=== PATIENT | female | born 1985 | race Caucasian/White ===

== ENCOUNTER 2019-03-08 06:02 | Day surgery (SDC) | payer OTHER, BC ==
[~2019-03-08] VITALS: Ht 154.9 cm; Wt 65.8 kg
[~2019-03-08 06:02] MED LIST: CELE1CAP9 PO; EPIN0.3I11; HYDR-3363 PO; NUVAMIS2; OMEP20CA3 PO; PROAAER10 INH; PROP10TA56 PO; PROP60CA; SING10TA32 PO; TOPA50TA8 PO; TROK1CAP7; TYLE650T35 PO; VENTAER INH; [UNRECOGNIZED DRUG - OTHER] NARES
[2019-03-08] MEDS ORDERED: EPINEPHrine INJ 1 MG/ML 1ML AMP ONE (06:03)
[2019-03-08] MEDS ORDERED: dexameTHASONE 10 MG/1 ML VIAL PRES.FREE (J1100) ONE (06:03)
[2019-03-08] MEDS ORDERED: ROPIvacaine 0.5% 30 ML INJECTION (J2795 PER 1MG) ONE (06:03)
[2019-03-08] MEDS ORDERED: MIDAZOLAM INJ 2 MG/2 ML VIAL (J2250) As Ordered ONE (06:34)
[2019-03-08] MEDS ORDERED: fentaNYL 100 MCG/2 ML INJECTION (J3010) As Ordered ONE ×2 (06:34→07:14)
[2019-03-08 06:35] LABS: URINE PREG TEST NEGATIVE (NEGATIVE)
[2019-03-08] MEDS ORDERED: EPINEPHrine INJ 1 MG/ML 1ML AMP As Ordered ONE (06:44)
[2019-03-08] MEDS ORDERED: LIDOCAINE 1% MDV 20ML VIAL As Ordered ONE (06:46)
[2019-03-08] MEDS ORDERED: ceFAZolin 2 GM/D5W 50 ML IV BAG (J0690 PER 500MG) As Ordered ONE (06:46)
[2019-03-08] MEDS ORDERED: LR 1,000 ML IV ONE (07:00)
[2019-03-08] MEDS ORDERED: PROPOFOL 200 MG/20 ML VIAL As Ordered ONE (07:10)
[2019-03-08] MEDS ORDERED: LIDOCAINE 2% INJ 100 MG/5 ML SDV (FOR ANES.) As Ordered ONE (07:10)
[2019-03-08] MEDS ORDERED: ONDANSETRON 4MG/2ML VIAL (J2405) As Ordered ONE (07:10)
[2019-03-08] MEDS ORDERED: dexameTHASONE 4 MG/ML 1ML VIAL (J1100) As Ordered ONE (07:10)
[2019-03-08] MEDS ORDERED: ROCURONIUM BROMIDE 50 MG/5 ML VIAL As Ordered ONE (07:10)
[2019-03-08] MEDS ORDERED: MIDAZOLAM INJ 2 MG/2 ML VIAL (J2250) IV ONE (07:45)
[2019-03-08] MEDS ORDERED: fentaNYL 100 MCG/2 ML INJECTION (J3010) IV ONE (07:45)
[2019-03-08] MEDS ORDERED: GLYCOPYRROLATE INJ 0.2 MG/ML 2 ML VIAL As Ordered ONE (08:14)
[2019-03-08] MEDS ORDERED: NEOSTIGMINE 10 MG/10 ML VIAL (J2710) As Ordered ONE (08:14)
[2019-03-08] MEDS ORDERED: ONDANSETRON 4MG/2ML VIAL (J2405) IV PRN (10:15)
[2019-03-08] MEDS ORDERED: LR 1,000 ML IV SCH (10:15)
[2019-03-08] MEDS ORDERED: oxyCODONE 5MG TAB PO PRN (10:15)
[2019-03-08] MEDS ORDERED: fentaNYL 100 MCG/2 ML INJECTION (J3010) IV PRN (10:15)
--- NOTE | 2019-03-08 10:31 | RO ---
DATE OF SURGERY: 03/08/2019 PREOPERATIVE DIAGNOSES: 1. Right shoulder posterior instability. 2. Right shoulder partial thickness rotator cuff tear. 3. Right shoulder impingement. POSTOPERATIVE DIAGNOSES: 1. Right shoulder posterior instability. 2. Right shoulder partial thickness rotator cuff tear. 3. Right shoulder impingement. PROCEDURES: 1. Right shoulder arthroscopic posterior labral repair. 2. Right shoulder arthroscopic rotator cuff debridement. 3. Right shoulder arthroscopic subacromial decompression. SURGEON: Enrrique Helm MD PIE TOPPER: Amberly Ordaz PA-C ANESTHESIA: General with preoperative nerve block. INTRAVENOUS (IV) FLUIDS: Lactated Ringer. ESTIMATED BLOOD LOSS: Less than 5 mL. IMPLANTS: Arthrex BioComposite 2.9 mm PushLock anchor times two with labral tape. CLOSURE: Nylon. DESCRIPTION OF PROCEDURE: The patient was identified in the preoperative holding area. The right shoulder marked by me. She had an interscalene nerve block by anesthesia. She is brought to the operating room, placed supine on a well-padded OR table with a beanbag. She received appropriate intravenous (IV) antibiotics within 1 hour of incision. After induction of general anesthesia, an examination under anesthesia was performed of the right shoulder. This revealed 170 degrees of forward flexion, 90 of external rotation with arm at her side, and grade 2+ posterior load and shift, grade 1 anterior load and shift. Left shoulder had a grade 1+ anterior and posterior load and shift. The patient was then placed into the left side down lateral decubitus position with an axillary roll and all bony prominences well padded. She had bilateral Venodyne boots for deep venous thrombosis (DVT) prophylaxis. The right arm was placed into the Arthrex STaR (Shoulder Traction and Rotation) Sleeve lateral decubitus traction powell with 10 pounds of traction. The right shoulder was then prepped and draped in normal sterile fashion with ChloraPrep. Prior to incision, time-out was performed per hospital protocol. Brayan Ordaz was present for the entire procedure and participated in all essential portions of the procedure. This included patient positioning and draping, holding the arthroscope, using the suture grasper to retrieve sutures arthroscopically, loading sutures through the suture lasso and anchor, and wound closure. A time-out performed per hospital protocol. The right shoulder was insufflated with lactated Ringer. A standard posterior viewing portal was made with an 11 blade. 30-degree arthroscope introduced into the joint atraumatically. Diagnostic arthroscopy carried out, revealing a small to moderate partial articular tear of the supraspinatus. The infraspinatus and teres minor were pristine. The subscapularis was intact, however, it had an interesting split morphology with upper and lower leaflets. This was an anatomical variant. It did not appear to be a traumatic tear. The long head of the biceps was unremarkable. The anterior and superior labrum were intact. The inferior labrum around the 6 o'clock position was intact. There was a fissure at the chondral labral junction of the posterior labrum from the 7:30 to 09:30 position. There was grade 1 chondromalacia in the glenoid. An anterior working portal was established through the rotator interval just above the subscapularis. A purple Arthrex cannula was placed. A second cannula was placed high in the rotator interval just anterior to the supraspinatus. The arthroscope was then placed in the superolateral portal, and the labrum was inspected from a different view. The switching stick was used through the initial posterior portal to palpate the posterior labrum, and I was able to displace the posterior labrum medially, making this consistent with a Melissa lesion. Given the patient's preoperative symptoms of posterior instability and intraoperative findings, this was indicated for a posterior labral repair. There was no sign of the inferior or anterior labral tearing or instability. An accessory posterolateral portal was made using the Arthrex percutaneous labral repair kit. Hooked cautery was then used to develop the plane between articular cartilage and labrum posteriorly. Labral elevators were then used to further dissect in a subperiosteal fashion to elevate posterior labrum. A suture lasso was then used to shuttle nitinol wire through the posterior labrum close to the 7:30 position. Labral tape was shuttled. The appropriate drill for a 2.9 mm PushLock was then used to create a socket around the 7:30 position, and the sutures were tensioned. [place] was inserted by hand and then malleted per routine. This nicely advanced the posterior labrum to the glenoid, restoring a bumper. Sutures were cut with the labral videotape sales representative. Next, those steps were repeated around the 8:30 to 9 o'clock position and another labral tape shuttled through capsule and labrum. These were again loaded through a 2.9 mm PushLock anchor. Socket was drilled. [place] was inserted with great fixation. Again, nicely restoring the posterior bumper. Sutures were cut. I felt that a third anchor was unnecessary in this case. I should have mentioned that prior to the posterior labral repair, I actually performed a rotator cuff debridement. The shaver was used to remove frayed articular-sided supraspinatus tissue. I would estimate this at a 25% to 33% partial tear. Using the probe and a switching stick to palpate the area of the tear after the debridement, there were no areas of high-grade tearing. The arthroscope was then placed into the subacromial space where there was extensive bursitis. A lateral working portal was established and an extensive bursectomy performed with the shaver and cautery. There was minimal bursal-sided fraying of the supraspinatus. The shoulder was very gently internally and externally rotated, and there was no liftoff or buckling. A switching stick was used to palpate the entire bursal-sided rotator cuff. No high-grade tears appreciated. No indication for rotator cuff repair. Bursal tissue was cleared off the undersurface the acromion. The CA ligament did not appear thickened, and there was no significant subacromial spur so no acromioplasty indicated. The shoulder was irrigated and drained. Portals closed with nylon suture. She was carefully positioned into her R-2 sling in the gunslinger position. After placed into the sling, she was extubated, transferred to the postanesthesia care unit (PACU) in stable condition.
[2019-03-08 11:15] VITALS: BP 115/60
== END 2019-03-08 11:21 | disposition home or self-care (01) ==
LOC: M SDC 06:02
PROVIDERS: ATTEND Orthopaedic Surgery
DX: M25.311 Other instability, right shoulder (principal); M75.111 Incomplete rotator cuff tear or rupture of right shoulder, not specified as traumatic; M75.41 Impingement syndrome of right shoulder; K21.9 Gastro-esophageal reflux disease without esophagitis; J45.909 Unspecified asthma, uncomplicated; Z79.899 Other long term (current) drug therapy; Z79.51 Long term (current) use of inhaled steroids; Z91.040 Latex allergy status; Z88.2 Allergy status to sulfonamides; Z88.0 Allergy status to penicillin
CPT/HCPCS: 29807; 29826; 29827; 64415; 84703; C1713; J0690; J1100; J2250; J2405; J2710; J2795; J3010

== ENCOUNTER → 2021-07-11 | Outpatient (CLI) | payer OTHER ==
[~2021-07-11] MED LIST changes: +ACET650T61 PO; +OMEP1CAP73 PO; -OMEP20CA3 PO; -TYLE650T35 PO
--- NOTE | 2021-07-12 12:02 | REP ---
INDICATION: DISC DEGENERATION, RADICULOPATHY, R/O HNP, COMPARE. COMPARISON: 11/10/2019. TECHNIQUE: Multiple sequences obtained in the axial and sagittal planes. FINDINGS: The vertebral bodies are normal in height and well aligned with straightening of the normal lordosis. No abnormal signal is seen in the cervical spinal cord. There is disc dessication and mild disc height loss at C4-5 and C5-6. At C2-3 there is no evidence of disc bulging or herniation. There is no spinal stenosis or foraminal narrowing. At C3-4 there is minimal uncovertebral spurring with no spinal canal stenosis or foraminal narrowing. At C4-5 there is a 3 mm central disc protrusion without significant spinal stenosis. There is uncovertebral spurring causing moderate right and mild left foraminal narrowing. At C5-6 there is mild diffuse disc bulging without significant spinal stenosis. There is mild uncovertebral and facet spurring without significant foraminal narrowing. At C6-7 and C7-T1 there is no significant disc bulging or herniation and no evidence of spinal stenosis or foraminal narrowing. Incidental note is made of mild enlargement of the adenoids. IMPRESSION: Degenerative disc changes, uncovertebral spurring and disc bulging unchanged since prior study as discussed above. <Electronically signed by Christopher Leija > 07/12/21 1809
== END ==
LOC: M PLAIMG 15:37
PROVIDERS: ATTEND Physician Assistant
DX: M54.12 Radiculopathy, cervical region (principal); M50.30 Other cervical disc degeneration, unspecified cervical region

== ENCOUNTER → 2024-08-23 | Outpatient (REF) ==
[~2024-08-23] MED LIST changes: +CELE0.09 PO; -CELE1CAP9 PO; +ETON1VAG7; +MONT-5 PO; -NUVAMIS2; -SING10TA32 PO; +TROK100C; -TROK1CAP7
== END ==
LOC: M PLAIMG 14:06
PROVIDERS: ATTEND Internal Medicine
DX: M25.511 Pain in right shoulder (principal); M25.551 Pain in right hip; M54.50 Low back pain, unspecified